=== PATIENT | female | born 1955 | race Caucasian/White ===

== ENCOUNTER → 2018-02-14 | Outpatient (CLI) | payer OTHER ==
[~2018-02-14] VITALS: Ht 156.2 cm; Wt 46.4 kg
[~2018-02-14] MED LIST: BACTRIM,SEPT1 TABLET PO; DEXILANT60 MG PO; LEXAPRO10 MG PO; PREVACID30 MG PO; PROBIOTIC1 EAC1 PO; VITAMIN D31000 UNIT PO; ZOCOR10 MG PO
[2018-02-14 09:26] VITALS: BP 128/92
== END | disposition home or self-care (01) ==
LOC: IVINF 02-04 15:00
DX: M81.0 Age-related osteoporosis without current pathological fracture (principal); Z87.19 Personal history of other diseases of the digestive system
CPT/HCPCS: 96365; J3489